=== PATIENT | male | born 1945 | race Caucasian/White ===

== ENCOUNTER 2017-11-30 06:31 | Inpatient (IN) | payer OTHER ==
[2017-11-27 08:58] VITALS: BMI 33.6
[2017-11-30] MEDS ORDERED: HEPARIN NA (PORCINE) 5,000 UNITS/ML 1ML VIAL ONE ×3 (07:30→09:53)
[2017-11-30] MEDS ORDERED: LIDOCAINE HCL 0.5%, 5 MG/ML (50mL SDVIAL) ONE (07:31)
[2017-11-30] MEDS ORDERED: ROCURONIUM BROMIDE 50 MG/5 ML VIAL ONE ×2 (07:38→09:31)
[2017-11-30] MEDS ORDERED: PROPOFOL 20 ML ONE (07:38)
[2017-11-30] MEDS ORDERED: POVIDONE-IODINE OINTMENT 10% - 28.4 GM TUBE ONE (07:43)
[2017-11-30] MEDS ORDERED: CEFAZOLIN 1 GM PUSH 1 GM/10 ML DISP.SYRIN IVPUSH ONE ×2 (08:30→16:30)
[2017-11-30] MEDS ORDERED: ceFAZolin SODIUM 1 GM VIAL IVPB ONE (08:56)
[2017-11-30] MEDS ORDERED: GLYCOPYRROLATE 0.2 MG/1 ML VIAL ONE (10:37)
[2017-11-30] MEDS ORDERED: VASOPRESSIN 20 UNITS/ML VIAL IV ONE (10:37)
[2017-11-30] MEDS ORDERED: LIDOCAINE HCL 2% JELLY (5 ML/TUBE) ONE (10:38)
[2017-11-30] MEDS ORDERED: DEXAMETHASONE SOD PHOSPHATE 4 MG/1 ML VIAL ONE (10:38)
[2017-11-30] MEDS ORDERED: SODIUM CHLORIDE 0.9% P/F 10 ML VIAL IJ ONE (10:38)
[2017-11-30] MEDS ORDERED: ceFAZolin SODIUM 1 GM VIAL ONE (10:38)
[2017-11-30] MEDS ORDERED: LIDOCAINE HCL/PF 2% SDV 5ML VIAL ONE (10:38)
[2017-11-30] MEDS ORDERED: NEOSTIGMINE METHYLSULFATE 0.5 MG/ML - 10 ML MDV ONE (10:39)
--- NOTE | 2017-11-30 11:03 | HP ---
Admitting History and Physical - Admission History of Present Illness: 72 year old man noted to have right carotid brut on recent physical exam. He has no history of stroke or TIA. He is right handed. A Duplex exam showed severe stenosis of right ICA. History Source: Patient, Medical Record Limitations to Obtaining History: No Limitations - Past Medical History Cardiovascular: Yes: Other (Bilateral claudication) - Smoking History Smoking history: Current some day smoker Have you smoked in the past 12 months: Yes - Alcohol/Substance Use Hx Alcohol Use: No Home Medications - Allergies Allergies/Adverse Reactions: Allergies Allergy/AdvReac Type Severity Reaction Status Date / Time No Known Allergies Allergy Verified 11/30/17 07:29 - Home Medications Home Medications: Ambulatory Orders Amlodipine Besylate/Benazepril [Lotrel 10-20 mg Capsule] 1 cap PO HS 11/27/17 Ascorbate Calcium [Vitamin C] 500 mg PO DAILY 11/27/17 Aspirin [ASA -] 325 mg PO DAILY 11/27/17 Cilostazol 100 mg PO BID 11/27/17 Fenofibrate Nanocrystallized [Fenofibrate] 145 mg PO HS 11/27/17 Multivit-Min/FA/Lycopen/Lutein [Centrum Silver Men Tablet] 1 each PO DAILY 11/27 [place]-3/Dha/Epa/Fish Oil [Fish Oil 500 mg Softgel] 1 each PO DAILY 11/27/17 Rosuvastatin Calcium 20 mg PO HS 11/27/17 Vitamin E 400 unit PO DAILY 11/27/17 Propranolol HCl 80 mg PO HS 11/30/17 Physical Examination Vital Signs: Vital Signs Temperature 97.5 F L 11/30/17 07:06 Pulse Rate 84 11/30/17 07:06 Respiratory Rate 18 11/30/17 07:06 Blood Pressure 102/60 11/30/17 07:06 O2 Sat by Pulse Oximetry (%) 98 11/30/17 07:06 Constitutional: Yes: No Distress Eyes: Yes: EOM Intact HENT: Yes: Atraumatic Neck: Yes: Supple, Other (right bruit) Cardiovascular: Yes: Regular Rate and Rhythm Respiratory: Yes: Regular Gastrointestinal: Yes: Soft Extremities: Yes: WNL Edema: No Neurological: Yes: Alert, Oriented ...Motor Strength: WNL Problem List - Problems (1) Stenosis of right carotid artery without cerebral infarction Assessment/Plan: Severe stenosis of right ICA in patient with peripheral arterial disease. Plan right carotid endarterectomy. Risks of surgery including bleeding, infection, stroke discussed with patient. Code(s): I65.21 - OCCLUSION AND STENOSIS OF RIGHT CAROTID ARTERY
--- NOTE | 2017-11-30 11:05 | OP ---
Operative Note - Note: Operative Date: 11/30/17 Pre-Operative Diagnosis: Right carotid stenosis Operation: Right carotid endarterectomy Findings: Plaque at bifurcation right ICA with severe stenosis Implants: Thin wall collagen coated Dacron patch Post-Operative Diagnosis: Same as Pre-op Surgeon: Chong Sanabria Fan Blade Aligner: Ally Perez Anesthesiologist/AIRCRAFT CLEANER: Laure Gonzalez MD Anesthesia: General Specimens Removed: Plaque right ICA
[2017-11-30] MEDS ORDERED: HYDROmorphone HCL CARPU-JECT 2 MG/1 ML DISP.SYRIN IVPB PRN (11:10)
[2017-11-30] MEDS ORDERED: ASPIRIN 81 MG CHEWABLE TABLETS PO SCH (11:15)
[2017-11-30] MEDS ORDERED: CLOPIDOGREL BISULFATE 75 MG TABLET (FP) PO SCH (11:15)
[2017-11-30] MEDS ORDERED: D5-1/2NS+20 MEQ KCL - 20 MEQ/1,000 ML INFUS.BAG IV SCH (11:15)
[2017-11-30] MEDS ORDERED: ONDANSETRON 4 MG/2 ML VIAL IVPUSH PRN (11:33)
[2017-11-30] MEDS ORDERED: ePHEDrine SULFATE 50 MG/1 ML AMPULE ONE (11:41)
[2017-11-30] MEDS ORDERED: LACTATED RINGERS SOLUTION 1,000 ML IV SCH (11:45)
[2017-11-30] MEDS: DOPAMINE 400 MG/D5W - 400,000 MCG/250 ML INFUS.BAG IVPB SCH (12:15)
[2017-11-30] MEDS: D5-1/2NS+20 MEQ KCL - 20 MEQ/1,000 ML INFUS.BAG IV SCH (15:30)
[2017-11-30] MEDS ORDERED: HYDROmorphone HCL CARPU-JECT 1 MG/1 ML DISP.SYRIN IVPB PRN (15:39)
[2017-11-30] MEDS ORDERED: CEFAZOLIN 1 GM PUSH 1 GM/10 ML DISP.SYRIN IVPUSH SCH (18:00)
[2017-11-30] MEDS ORDERED: CEFAZOLIN 1 GM/D5W 50 ML IVPB SCH (18:00)
[2017-11-30] MEDS: CEFAZOLIN 1 GM PUSH 1 GM/10 ML DISP.SYRIN IVPUSH SCH (18:10)
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
[2017-11-30] MEDS ORDERED: PT OWN MED DRAWER 7, Y5N ONE (21:24)
[2017-11-30] MEDS: MUPIROCIN 2% TOPICAL OINTMENT FOR DECOLONIZATION NS SCH (21:28)
[2017-11-30] MEDS ORDERED: PROPRANOLOL HCL 80 MG PO SCH (22:00)
[2017-11-30] MEDS ORDERED: PATIENT'S OWN MEDICATION (NON-FORMULARY) (Amlodipine Besylate/Benazepril [Lotrel 10-20 Mg PO SCH (22:00)
[2017-11-30] MEDS ORDERED: ROSUVASTATIN CA 20 MG TABLET (FP) PO SCH (22:00)
[2017-11-30] MEDS ORDERED: PATIENT'S OWN MEDICATION (NON-FORMULARY) (Fenofibrate Nanocrystallized [Fenofibrate] 145 M PO SCH (22:00)
[2017-11-30] MEDS ORDERED: CHLORHEXIDINE GLUCONATE 4% CLEANSER FOR DECOLONIZATION TP SCH (22:00)
[2017-12-01] MEDS: CEFAZOLIN 1 GM PUSH 1 GM/10 ML DISP.SYRIN IVPUSH SCH (02:55)
[2017-12-01 06:25] LABS: HEMATOCRIT 35.8 % (35.4-49); MCH 31.2 pg (25.7-33.7); MCHC 33.6 g/dl (32.0-35.9); MEAN PLT VOLUME 8.7 fl (7.5-11.1); PLATELET COUNT 284 K/MM3 (134-434); RBC 3.85 M/mm3 (4.00-5.60)
[2017-12-01 07:01] LABS: ANION GAP 8 (8-16); BLOOD UREA NITROGEN 23 mg/dL (7-18); CALCIUM 9.3 mg/dL (8.5-10.1); CHLORIDE 108 mmol/L (98-107); CO2 22 mmol/L (21-32); GLUCOSE,RANDOM 116 mg/dL (74-106); POTASSIUM 4.8 mmol/L (3.5-5.1); SODIUM 138 mmol/L (136-145)
[2017-12-01 07:03] LABS: CREATININE 1.5 mg/dL (0.7-1.3)
--- NOTE | 2017-12-01 08:25 | PN ---
Progress Note (short form) - Note Progress Note: POD 1 On Dopamine drip for BP support Neck wound clean and dry neuro stable Labs reviewed Stable post-op D/C Dopamine Transfer to floor OOB Problem List - Problems (1) Stenosis of right carotid artery without cerebral infarction Code(s): I65.21 - OCCLUSION AND STENOSIS OF RIGHT CAROTID ARTERY
--- NOTE | 2017-12-01 09:06 | OP ---
DATE OF OPERATION: 11/30/2017 SURGEON: Chong Sanabria MD INSURANCE CLAIM APPROVER: NOE Anderson PROCEDURE: Right carotid endarterectomy. PREOPERATIVE DIAGNOSIS: Carotid stenosis. POSTOPERATIVE DIAGNOSIS: Carotid stenosis. ANESTHESIA: General. ANESTHESIOLOGIST: Laure Gonzalez MD OPERATIVE FINDINGS: There was a large plaque in the right carotid bulb extending to the internal and external carotid arteries with significant stenosis in both branches. OPERATIVE PROCEDURE: Following routine patient identification with side and site verification, general anesthesia was induced. The right neck was prepped with ChloraPrep. Timeout was performed. A skin incision was made along the anterior border of the right sternocleidomastoid muscle and carried through subcutaneous tissue and platysma with cautery. The anterior border of the sternocleidomastoid was freed, and then the muscle was retracted laterally. The internal jugular vein was dissected along its anterior border and retracted laterally. Side branches of the vein were ligated and divided. The common carotid artery was then mobilized in the base of the incision and encircled with an umbilical tape. Distal dissection allowed identification of the bifurcation. The external carotid was secured with a Vesseloop. The distal internal carotid artery was then exposed, with care not to injury any adjacent nerves. Crossing vessels were ligated with silk ties and divided. The patient was systemically heparinized. The external, internal, and common carotid arteries were then occluded with clamps and Vesseloops. An arteriotomy was made in the common extending to the internal to a point distal to atherosclerotic plaque. Backbleeding from the distal internal was good. A Brener shunt, having previously been filled with heparin solution, was inserted into the distal internal carotid artery and secured with a Vesseloop. It was allowed to backbleed through the sidearm, was reoccluded. Proximal end was placed in the common carotid artery and secured with the umbilical tape. It was also flushed through the sidearm, and then flow was restored to the internal under direct vision. Endarterectomy was then performed to remove all plaque from the common, internal, and external branches. Loose media fibers were removed. The distal intima was adherent to the wall and required no tacking sutures. The arteriotomy was then closed with a thin collagen-coated Dacron patch which was sutured to the arterial garcia with running 6-0 Prolene. Prior to completion of the suture line, the shunt was clamped and divided and removed, allowing backbleeding and flushing of all branches. The lumen was filled with heparin solution and the suture line was completed. Flow was then restored first to the external and then the internal carotid artery. Evaluation with a hand-held Doppler revealed good flow in all branches. Bleeding from the suture lines was controlled with Surgicel. When hemostasis was achieved, the wound was irrigated and closed with interrupted suture of 3-0 Vicryl in subcutaneous tissue and platysma layer, and mackenzie on the skin. Sterile dressing was applied and the patient was awakened from anesthesia, found to be in intact neurologic condition. He was transported to the recovery room in stable condition. Bharti [id number]
--- NOTE | 2017-12-01 09:17 | PN ---
Physical Exam: SUBJECTIVE: Patient seen and examined. POD1 s/p R endarterectomy. No new c/o, pain is well controlled, had breakfast this am. Seen by surgeon and ready for transfer to Med surg. Has prior L eye ptosis, s/p L craniotomy. Uses home propranolol, last dose (thursday night). Had episodes of bradycardia overnight with hypotension but has been weaned off dopamine. OBJECTIVE: Vital Signs Period Temp Pulse Resp BP Sys/Arteaga Pulse Ox Last 24 Hr 97.2 F-98.8 F 44-103 14-20 74-146/38-69 95-99 Vital Signs Temp 98.0 F 12/01/17 05:41 Pulse 46 L 12/01/17 08:00 Resp 18 12/01/17 08:00 BP 113/57 12/01/17 08:00 Pulse Ox 97 11/30/17 20:43 Intake & Output 11/30/17 11/30/17 12/01/17 11:59 23:59 11:59 Intake Total 2750 1696 962.3 Output Total 175 675 650 Balance 2575 1021 312.3 Weight 77.252 kg Intake: IV 2750 1256 762.3 D5-1/2NS+20 MEQ KCL - 20 850 700 meq In 1,000 ml @ 100 mls /hr IV ASDIR [facility]ILAR[facility] Rx#: [id number] DOPAMINE 400 MG/D5W - 400 46 62.3 ,000 mcg In 250 ml @ 5 MCG/KG/MIN 14.884 mls/hr IVPB TITR [facility] Rx#: [id number] Oral 440 200 Output: Urine 125 675 650 Void 550 650 Estimated Blood Loss 50 Other: Voiding Method Urinal # Unmeasured Voids Void 1 Weight Measurement Method Built in [facility] GENERAL: The patient is awake, alert, and fully oriented, in no acute distress, sating well on RA. HEAD: L Supraorbital round swelling about 3x3cm. EYES: L ptosis (on botox treatment for it). Pupils reactive bilaterally ENT: R neck dressing. NECK: supple. LUNGS: Decreased breath sounds lung bases bilaterally, clear to auscultation bilaterally, no accessory muscle use. HEART: bradycardic, S1, S2 ABDOMEN: Soft, nontender, nondistended, normoactive bowel sounds, EXTREMITIES: 2+ pulses, warm, well-perfused, no edema. NEUROLOGICAL: AAOx3. Able to move all limbs. Prior L ptosis noted, no lateralizing signs. Normal speech, gait not observed. PSYCH: Normal mood, normal affect. Lines: LUE peripheral line, Laboratory Results - last 24 hr 12/01/17 12/01/17 05:30 05:30 WBC 14.0 H RBC 3.85 L Hgb 12.0 Hct 35.8 MCV 93.0 MCH 31.2 MCHC 33.6 RDW 13.0 Plt Count 284 MPV 8.7 Sodium 138 Potassium 4.8 Chloride 108 H Carbon Dioxide 22 Anion Gap 8 BUN 23 H Creatinine 1.5 H Random Glucose 116 H Calcium 9.3 Active Medications Generic Name Dose Route Start Last Admin Trade Name Freq PRN Reason Stop Dose Admin Amlodipine Besylate 10 mg 12/01/17 10:00 Norvasc - PO DAILY [facility] Ascorbic Acid 500 mg 12/01/17 10:00 Vitamin C - PO DAILY [facility] Aspirin 81 mg 12/01/17 10:00 Asa - PO DAILY [facility] Chlorhexidine Gluconate 1 applic 11/30/17 22:00 11/30/17 21:28 Hibiclens For Decolonization - TP 1 applic HS [facility] Administration Clopidogrel Bisulfate 75 mg 12/01/17 10:00 Plavix - PO DAILY [facility] Enoxaparin Sodium 40 mg 12/01/17 10:00 Lovenox - SQ DAILY [facility] Fenofibric Acid 135 mg 12/01/17 10:00 Trilipix - PO DAILY [facility] Fentanyl 50 mcg 11/30/17 11:33 Sublimaze Injection - IVPUSH [id number] PRN PAIN-PACU ORDER X 4 DOSES ONLY Hydromorphone HCl 1 mg 11/30/17 15:39 Dilaudid Injection - IVPB Q3H PRN PAIN LEVEL 1-5 Dopamine HCl/Dextrose 400,000 mcg in 250 mls @ 14.884 mls/hr 11/30/17 12:15 12/01/17 00:00 Dopamine 400 Mg/D5w - IVPB 3 mcg/kg/min TITR [facility] 8.93 mls/hr Protocol Titration 5 MCG/KG/MIN Potassium Chloride/Dextrose/Sod Cl 20 meq in 1,000 mls @ 100 mls/hr 11/30/17 15:39 11/30/17 15:30 D5-1/2ns+20 Meq Kcl - IV 100 mls/hr [facility] Administration Lisinopril 20 mg 12/01/17 10:00 Prinivil PO DAILY [facility] Mupirocin 1 applic 11/30/17 22:00 11/30/17 21:28 Bactroban Ointment (For Decolonization) - NS 12/05/17 21:59 1 applic BID [facility] Administration Ondansetron HCl 4 mg 11/30/17 11:33 Zofran Injection IVPUSH Q6H PRN NAUSEA AND/OR VOMITING Propranolol HCl 80 mg 12/01/17 10:00 Inderal La - PO DAILY [facility] Rosuvastatin Calcium 20 mg 11/30/17 22:00 11/30/17 22:25 Crestor - PO 20 mg HS [facility] Administration ASSESSMENT/PLAN: 72 yo M with PMHx HTN, HLD, Smoker, R Carotid Stenosis s/p R CEA, Post op Hypotension now off dopamine Cardio/vascular: R Carotid Stenosis s/p R CEA, Post op Hypotension now off dopamine HTN, HLD, Smoker Propranolol 80mg PO daily Lisinopril 20mg PO daily Amlodipine 10mg PO daily Rosuvastatin Calcium 20mg PO daily Plavix 75mg PO daily ASA 81mg daily Smoking cessation Pain mx-dilaudid Fenofibric Acid 135mg PO daily Ascorbic acid 500mg daily GI/Renal/Lytes/Lines: Resumed diet Montor lytes BMP Ascorbic acid 500mg daily Lines: LUE Peripheral line Resp: Stable On room air Prophylaxis: Lovenox SQ 40mg daily Dispo: Transfer to Med Surg Visit type - Emergency Visit Emergency Visit: No - New Patient This patient is new to me today: Yes Date on this admission: 12/01/17 - Critical Care Critical Care patient: Yes Total Critical Care Time (in minutes): 35 Critical Care Statement: The care of this patient involved high complexity decision making to prevent further life threatening deterioration of the patient 's condition and/or to evaluate & treat vital organ system(s) failure or risk of failure. - Discharge Referral Referred to [facility] Med P.C.: No
[2017-12-01 09:54] LABS: MAGNESIUM 2.1 mg/dL (1.8-2.4); PHOSPHOROUS 2.8 mg/dL (2.5-4.9)
[2017-12-01] MEDS ORDERED: FENOFIBRIC ACID 135 MG CAP PO SCH (10:00)
[2017-12-01] MEDS ORDERED: ASCORBIC ACID 500 MG TABLET (FP) PO SCH ×2 (10:00)
[2017-12-01] MEDS ORDERED: CLOPIDOGREL BISULFATE 75 MG TABLET (FP) PO SCH ×2 (10:00)
[2017-12-01] MEDS ORDERED: LISINOPRIL 20 MG TABLET (FP) PO SCH (10:00)
[2017-12-01] MEDS ORDERED: ENOXAPARIN NA (PORCINE) 40 MG/0.4 ML DISP.SYRIN SQ SCH ×3 (10:00)
[2017-12-01] MEDS ORDERED: ASPIRIN 81 MG CHEWABLE TABLETS PO SCH ×2 (10:00)
[2017-12-01] MEDS ORDERED: PATIENT'S OWN MEDICATION (NON-FORMULARY) (Ascorbate Calcium [Vitamin C] 500 MG) PO SCH (10:00)
[2017-12-01] MEDS ORDERED: amLODIPine BESYLATE 10 MG TABLET (FP) PO SCH (10:00)
[2017-12-01] MEDS: MUPIROCIN 2% TOPICAL OINTMENT FOR DECOLONIZATION NS SCH (10:10)
--- NOTE | 2017-12-01 12:01 | PN ---
Teaching Attending Note Name of Resident: Telma Muñiz ATTENDING PHYSICIAN STATEMENT I saw and evaluated the patient. I reviewed the resident's note and discussed the case with the resident. I agree with the resident's findings and plan as documented. SUBJECTIVE: Pt seen and examined in the ICU. Mild incisional pain. No shortness of breath or chest pain. OBJECTIVE: Last Vital Signs Temp Pulse Resp BP Pulse Ox 97.6 F 44 L 18 94/52 97 12/01/17 10:00 12/01/17 10:00 12/01/17 10:00 12/01/17 10:00 12/01/17 09:00 Intake & Output 11/28/17 11/29/17 11/30/17 12/01/17 23:59 23:59 23:59 23:59 Intake Total 4446 1162.3 Output Total 850 650 Balance 3596 512.3 Weight 77.252 kg Gen: NAD at rest Heart: RRR Lung: decreased breath sounds at the bases Abd: soft, nontender Ext: no edema CBC, BMP 12/01/17 05:30 12/01/17 05:30 Active Medications Amlodipine Besylate (Norvasc -) 10 mg PO DAILY [facility] Last Admin: 12/01/17 09:51 Dose: Not Given Ascorbic Acid (Vitamin C -) 500 mg PO DAILY [facility] Last Admin: 12/01/17 10:09 Dose: 500 mg Aspirin (Asa -) 81 mg PO DAILY [facility] Last Admin: 12/01/17 10:09 Dose: 81 mg Chlorhexidine Gluconate (Hibiclens For Decolonization -) 1 applic TP HS [facility] Last Admin: 11/30/17 21:28 Dose: 1 applic Clopidogrel Bisulfate (Plavix -) 75 mg PO DAILY [facility] Last Admin: 12/01/17 10:10 Dose: 75 mg Enoxaparin Sodium (Lovenox -) 40 mg SQ DAILY [facility] Last Admin: 12/01/17 10:09 Dose: 40 mg Fenofibric Acid (Trilipix -) 135 mg PO DAILY [facility] Last Admin: 12/01/17 09:47 Dose: 135 mg Fentanyl (Sublimaze Injection -) 50 mcg IVPUSH [id number] PRN PRN Reason: PAIN-PACU ORDER X 4 DOSES ONLY Hydromorphone HCl (Dilaudid Injection -) 1 mg IVPB Q3H PRN PRN Reason: PAIN LEVEL 1-5 Dopamine HCl/Dextrose (Dopamine 400 Mg/D5w -) 400,000 mcg in 250 mls @ 14.884 mls/hr IVPB TITR [facility]; 5 MCG/KG/MIN PRN Reason: Protocol Last Titration: 12/01/17 00:00 Dose: 3 mcg/kg/min, 8.93 mls/hr Potassium Chloride/Dextrose/Sod Cl (D5-1/2ns+20 Meq Kcl -) 20 meq in 1,000 mls @ 100 mls/hr IV ASDIR [facility] Last Admin: 11/30/17 15:30 Dose: 100 mls/hr Lisinopril (Prinivil) 20 mg PO DAILY [facility] Last Admin: 12/01/17 09:51 Dose: Not Given Mupirocin (Bactroban Ointment (For Decolonization) -) 1 applic NS BID [facility] Stop: 12/05/17 21:59 Last Admin: 12/01/17 10:10 Dose: 1 applic Ondansetron HCl (Zofran Injection) 4 mg IVPUSH Q6H PRN PRN Reason: NAUSEA AND/OR VOMITING Propranolol HCl (Inderal La -) 80 mg PO DAILY [facility] Last Admin: 12/01/17 09:51 Dose: Not Given Rosuvastatin Calcium (Crestor -) 20 mg PO HS [facility] Last Admin: 11/30/17 22:25 Dose: 20 mg ASSESSMENT AND PLAN: Carotid Stenosis s/p R CEA Post op Hypotension HTN Hypercholesterolemia Smoker - pain control - incentive spirometry - ASA, plavix - statin - smoking cessation - DVT prophylaxis - can monitor on floor
--- NOTE | 2017-12-01 12:39 | PN ---
Progress Note (short form) - Note Progress Note: Anesthesia post op note 72 y/o M s/p GA for right CEA POD#1, vss, aaox3, no complaints. Was hypotensive postop, now off dopamine. No anesthesia complications.
--- NOTE | 2017-12-01 13:34 | SURG ---
Surgery Occupational Health Physician Note Occupational Health Physician: Ally Perez PA-C Date of Service: 11/30/17 Diagnosis: Right carotid stenosis Procedure: Right carotid endarterectomy I was present for the entirety of the operative procedure. For further detail, please refer to operative report. Visit type - Case Type Case Type: Scheduled Admission - Emergency Emergency Visit: No - New patient This patient is new to me today: Yes Date on this admission: 11/30/17
--- NOTE | 2017-12-01 16:11 | PATH ---
Surgical Pathology Report Patient Name: CECY OWENS [facility]. Rec. #: [id number] /Age/Gender: 1945 (Age: 72) / M Account: [id number] Location: [address] [place] [address] Taken: 11/30/2017 Received: 11/30/2017 Reported: 12/01/2017 Physicians: Chong Sanabria M.D. Specimen(s) Received A: RIGHT CERVICAL LYMPH NODE B: PLAQUE FROM RIGHT CAROTID ARTERY Clinical History Occlusion and stenosis right carotid artery Final Diagnosis A. CERVICAL, LYMPH NODE, RIGHT, BIOPSY: LYMPHOID TISSUE, FAVOR REACTIVE. SEE COMMENT. B. CAROTID ARTERY, RIGHT, PLAQUE, EXCISION: CONSISTENT WITH FIBROUS AND CALCIFIED PLAQUE. Comment: Findings favor a reactive process. Suggest clinical/radiologic correlation. If there is clinical concern for a lymphoproliferative disorder, suggest further work up including flow cytometry studies, as warranted. Electronically Signed Marycarmen Paz M.D. Gross Description A. Received in formalin labeled "right cervical lymph node," is a 1.7 x 1.2 x 0.5 cm warner-pink, lobulated portion of soft tissue, possibly consistent with a lymph node. The specimen is bisected and entirely submitted in one cassette. B. Received in formalin labeled "plaque from right carotid artery," is a 1.5 x 0.8 x 0.4 cm warner-yellow, irregular, focally calcified portion of plaque. The specimen is serially sectioned and entirely submitted in one cassette, following decalcification. /11/30/201711/30/2017
[2017-12-01] MEDS: DOPAMINE 400 MG/D5W - 400,000 MCG/250 ML INFUS.BAG IVPB SCH (16:32)
[2017-12-01] MEDS ORDERED: HYDROmorphone HCL CARPU-JECT 1 MG/1 ML DISP.SYRIN IVPB PRN (16:55)
[2017-12-01] MEDS ORDERED: ONDANSETRON 4 MG/2 ML VIAL IVPUSH PRN (16:55)
[2017-12-01] MEDS ORDERED: PT OWN MED DRAWER 7, Y5N ONE (17:03)
[2017-12-01] MEDS: D5-1/2NS+20 MEQ KCL - 20 MEQ/1,000 ML INFUS.BAG IV SCH (17:48)
[2017-12-01] MEDS ORDERED: ROSUVASTATIN CA 20 MG TABLET (FP) PO SCH (22:00)
[2017-12-02 07:50] VITALS: BP 105/58; PULSE 58; TEMP 98.4
[2017-12-02 08:14] LABS: BASO % 0.4 % (0-2.0); EOS % 0.7 % (0-4.5); HEMATOCRIT 32.2 % (35.4-49); HEMOGLOBIN 10.9 GM/dL (11.7-16.9); LYMPH % 24.1 % (8-40); MCH 31.4 pg (25.7-33.7); MEAN CELL VOLUME 92.4 fl (80-96); MEAN PLT VOLUME 7.8 fl (7.5-11.1); NEUT % 63.8 % (42.8-82.8); PLATELET COUNT 252 K/MM3 (134-434); RBC 3.48 M/mm3 (4.00-5.60); RDW 12.8 % (11.9-15.9); WHITE BLOOD COUNT 10.8 K/mm3 (4.0-10.0)
--- NOTE | 2017-12-02 08:35 | PN ---
Progress Note (short form) - Note Progress Note: Pt seen and examined. He has no complaints of pain and is tolerating a diet. No difficulties with swallowing. OOB and ambulating without difficulty. Vital Signs Period Temp Pulse Resp BP Sys/Arteaga Pulse Ox Last 24 Hr 97.6 F-98.6 F 44-65 15-18 92-107/45-60 97-97 GEN: A&0x3, NAD Neck: Dressing changed. Inc c/d/i with mackenzie. Mild ecchymosis, no swelling noted. Neck remains soft. CBC/chem pending A/P: 72 yo male POD#2 s/p Right CEA Doing well surgically labs pending for this am Will plan for discharge today after seen by Dr. Sanabria, discharge paperwork completed.
[2017-12-02 08:50] LABS: ALBUMIN 3.5 g/dl (3.4-5.0); ANION GAP 8 (8-16); BLOOD UREA NITROGEN 22 mg/dL (7-18); CALCIUM 9.1 mg/dL (8.5-10.1); CHLORIDE 104 mmol/L (98-107); CO2 25 mmol/L (21-32); GLUCOSE,RANDOM 81 mg/dL (74-106); MAGNESIUM 2.1 mg/dL (1.8-2.4); POTASSIUM 4.3 mmol/L (3.5-5.1); SODIUM 137 mmol/L (136-145)
[2017-12-02 08:53] LABS: ALK PHOS 25 U/L (45-117); CREATININE 1.3 mg/dL (0.7-1.3); PHOSPHOROUS 2.6 mg/dL (2.5-4.9); SGOT/AST 23 U/L (15-37); SGPT/ALT 20 U/L (12-78); TOT PROT 6.5 g/dl (6.4-8.2)
[2017-12-02] MEDS ORDERED: PT OWN MED DRAWER 7, Y5N ONE (09:46)
[2017-12-02] MEDS ORDERED: ASCORBIC ACID 500 MG TABLET (FP) PO SCH (10:00)
[2017-12-02] MEDS ORDERED: ENOXAPARIN NA (PORCINE) 40 MG/0.4 ML DISP.SYRIN SQ SCH (10:00)
[2017-12-02] MEDS ORDERED: amLODIPine BESYLATE 10 MG TABLET (FP) PO SCH (10:00)
[2017-12-02] MEDS ORDERED: CLOPIDOGREL BISULFATE 75 MG TABLET (FP) PO SCH (10:00)
[2017-12-02] MEDS ORDERED: FENOFIBRIC ACID 135 MG CAP PO SCH (10:00)
[2017-12-02] MEDS ORDERED: LISINOPRIL 20 MG TABLET (FP) PO SCH (10:00)
[2017-12-02] MEDS ORDERED: ASPIRIN 81 MG CHEWABLE TABLETS PO SCH (10:00)
== END 2017-12-02 11:19 | disposition home or self-care (01) | DRG 39 ==
LOC: JSAMEDAYSX 06:31 → EDSTATUS 11:30 → JICU 15:30 → J5S 12-01 15:30
PROVIDERS: ADMIT Surgery; ATTEND Surgery
PROC: 03CM0ZZ Extirpation of Matter from Right External Carotid Artery, Open Approach (ICD-10-PCS; principal; 2017-12-01)
PROC: 03CK0ZZ Extirpation of Matter from Right Internal Carotid Artery, Open Approach (ICD-10-PCS; 2017-12-01)
PROC: 03CH0ZZ Extirpation of Matter from Right Common Carotid Artery, Open Approach (ICD-10-PCS; 2017-12-01)
DX: I65.21 Occlusion and stenosis of right carotid artery (principal); Z72.0 Tobacco use; I10 Essential (primary) hypertension; I95.81 Postprocedural hypotension; E78.00 Pure hypercholesterolemia, unspecified
CPT/HCPCS: 36415; 80048; 80053; 83735; 84100; 85025; 85027; 86850; 86900; 86901; 88304-TC; 88305-TC; 88311-TC; 94010; 94760; J1644